=== PATIENT | male | born 1940 | race Native Hawaiian/Other Pacific Islander ===

== ENCOUNTER 2016-12-11 08:25 | Outpatient (CLI) | payer OTHER | END 2016-12-11 19:58 | disposition home or self-care (01) | LOC: RAD 08:25 | DX: R91.8 Other nonspecific abnormal finding of lung field (principal) ==

== ENCOUNTER 2016-12-16 11:06 | Outpatient (CLI) | payer OTHER ==
[2016-12-16 11:40] LABS: POTASSIUM 4.2 mmol/L (3.6-5.2)
== END 2016-12-16 12:06 | disposition home or self-care (01) ==
LOC: LABW 11:06
PROVIDERS: Internal Medicine Cardiovascular Disease
DX: E78.4 Other hyperlipidemia (principal); I11.9 Hypertensive heart disease without heart failure
CPT/HCPCS: 36415; 80053; 80061

== ENCOUNTER 2017-05-22 08:24 | Outpatient (CLI) | payer OTHER ==
[2017-05-22] MEDS ORDERED: GLYB3TAB PO (09:26)
[2017-05-22] MEDS ORDERED: BENA5CAP4 PO (09:27)
[2017-05-22] MEDS ORDERED: FURO40TA93 PO (09:28)
[2017-05-22] MEDS ORDERED: CARDURA4 MG PO (09:29)
== END 2017-05-22 08:29 | disposition short-term general hospital (02) ==
LOC: AMB 08:24
DX: R53.1 Weakness (principal); R15.9 Full incontinence of feces; R00.1 Bradycardia, unspecified
CPT/HCPCS: A0425; A0427

== ENCOUNTER 2017-05-22 08:29 | Emergency (ER) | payer OTHER ==
[~2017-05-22] VITALS: Ht 182.9 cm; Wt 72.6 kg
[2017-05-22 08:29] VITALS: BP 121/72; TEMP 98
[2017-05-22 09:26] LABS: PLATELET COUNT 185 K/uL (142-355)
[2017-05-22] MEDS ORDERED: GLYB3TAB PO (09:26)
[2017-05-22] MEDS ORDERED: BENA5CAP4 PO (09:27)
[2017-05-22] MEDS ORDERED: FURO40TA93 PO (09:28)
[2017-05-22] MEDS ORDERED: CARDURA4 MG PO (09:29)
[2017-05-22 09:35] LABS: PARTIAL THROMBOPLASTIN TIME 19.5 SECONDS (24.5-33.6)
== END 2017-05-22 10:08 | disposition short-term general hospital (02) ==
LOC: ED 08:29
PROVIDERS: Family Medicine
DX: R07.89 Other chest pain (principal); I21.19 ST elevation (STEMI) myocardial infarction involving other coronary artery of inferior wall; I20.0 Unstable angina
CPT/HCPCS: 80053; 82550; 82553; 83880; 84484; 85027; 85610; 85730; 93005; 96361; 96374; 96375; 99285; J1644; J2405

== ENCOUNTER 2017-09-21 10:48 | Outpatient (CLI) | payer OTHER ==
[~2017-09-21 10:48] MED LIST: BENA5CAP4 PO; CARDURA4 MG PO; FURO40TA93 PO; GLYB3TAB PO
== END 2017-09-21 19:03 | disposition home or self-care (01) ==
LOC: RAD 10:48
DX: J84.9 Interstitial pulmonary disease, unspecified (principal)

== ENCOUNTER 2017-11-09 14:19 | Outpatient (CLI) | payer OTHER ==
[2017-11-09 15:38] LABS: POTASSIUM 4.4 mmol/L (3.6-5.2)
[2017-11-09 16:14] LABS: PLATELET COUNT 149 K/uL (142-355)
== END 2017-11-09 19:10 | disposition home or self-care (01) ==
LOC: LABW 14:19
PROVIDERS: Internal Medicine
DX: N18.4 Chronic kidney disease, stage 4 (severe) (principal); Z79.899 Other long term (current) drug therapy; Z51.81 Encounter for therapeutic drug level monitoring
CPT/HCPCS: 36415; 80053; 81000; 82043; 82570; 82728; 82746; 83036; 83540; 83550; 83735; 84100; 84155; 84439; 84443; 84550; 85027